=== PATIENT | male | born 1995 | race Hispanic/Latino ===

== ENCOUNTER 2018-10-04 09:50 | Emergency (ER) | payer MEDICAID ==
[2018-10-04 11:03] LABS: RAPID GROUP A STREP NEGATIVE (NEGATIVE)
== END 2018-10-04 11:16 | disposition home or self-care (01) ==
LOC: EDH 09:50
DX: J02.0 Streptococcal pharyngitis (principal); M54.5 Low back pain; G89.29 Other chronic pain; Z88.2 Allergy status to sulfonamides
CPT/HCPCS: 87804; 87880

== ENCOUNTER 2019-03-03 10:31 | Emergency (ER) | payer MEDICAID | END 2019-03-03 10:59 | disposition home or self-care (01) | LOC: EDH 10:31 | DX: J06.9 Acute upper respiratory infection, unspecified (principal); R05 Cough; G89.29 Other chronic pain; Z88.2 Allergy status to sulfonamides ==

== ENCOUNTER 2023-05-07 19:58 | Emergency (ER) | payer MEDICAID, OTHER ==
[~2023-05-07] VITALS: Ht 170.2 cm; Wt 112.5 kg
[2023-05-07 20:48] VITALS: BP 145/86; PULSE 80; RESP 18; O2SAT 98
[2023-05-07] MEDS ORDERED: MAG/ALUM/SIMETH 30 ML UDCUP PO ONE (21:30)
[2023-05-07] MEDS ORDERED: DICYCLOMINE HCL 10 MG/5 ML ML PO ONE (21:30)
[2023-05-07] MEDS ORDERED: LIDOCAINE HCL 2% VISCOUS 15 ML UDCUP PO ONE (21:30)
== END 2023-05-07 21:32 | disposition left against medical advice (07) ==
LOC: EDH 19:58
DX: R19.7 Diarrhea, unspecified (principal); Z53.21 Procedure and treatment not carried out due to patient leaving prior to being seen by health care provider
CPT/HCPCS: 99281